=== PATIENT | male | born 1950 | race Caucasian/White ===

== ENCOUNTER → 2024-04-19 09:32 | Outpatient (REF) | payer MEDICARE, OTHER, SELFPAY ==
[2024-04-19 10:17] LABS: % Eosinophils 4.2 % (0-6); % Immature Granulocytes 0.2 % (0-0.5); % Lymphocytes 21.7 % (20.5-51.1); % Monocytes 8.3 % (1.7-9.3); % Neutrophils 64.6 % (42.2-75.2); Absolute Basophils 0.1 10^3/uL (0-0.2); Absolute Eosinophils 0.2 10^3/uL (0-0.7); Absolute Lymphocytes 1.1 10^3/uL (1.2-3.4); Absolute Monocytes 0.4 10^3/uL (0.1-0.6); Absolute Neutrophils 3.3 10^3/uL (1.4-6.5); Hematocrit 42.3 % (39.0-52.0); Mean Corp Hgb Conc. 35.5 g/dL (33.0-37.0); Mean Corpuscular Hgb 30.5 pg (27.0-31.0); Mean Corpuscular Volume 86.2 fL (80.0-94.0); Mean Platelet Volume 9.6 fL (7.4-10.4); Nucleated Red Blood Cells % 0 % (-); Platelet Count 172 10^3/uL (130-400); Red Blood Cell Count 4.91 10^6/uL (4.70-6.10); Red Cell Dist. Width 12.6 % (11.5-14.5); White Blood Cell Count 5.1 10^3/uL (4.8-10.8)
[2024-04-19 11:36] LABS: Blood Urea Nitrogen 13 mg/dl (9-20); Carbon Dioxide 36 mmol/L (22-30); Chloride 103 mmol/L (98-107); Glucose 148 mg/dl (70-99); Potassium 3.4 mmol/L (3.5-5.1); Sodium 141 mmol/L (135-145); eGFR > 60.00
== END ==
LOC: SDSPAT 09:32
PROVIDERS: ATTENDING PHYSICIAN Specialist; FAMILY PHYSICIAN Internal Medicine; OTHER PHYSICIAN Internal Medicine
DX: Z01.818 Encounter for other preprocedural examination (principal)
CPT/HCPCS: 36415; 80048; 85025; 93005

== ENCOUNTER 2024-04-29 06:21 | Day surgery (SDC) | payer MEDICARE, OTHER, SELFPAY ==
[2024-04-19 10:12] VITALS: BMI 35.1
--- NOTE | 2024-04-25 10:36 | PTCARENOTE ---
Patients 04/19 potassium 3.4- Irais @ Dr. Roberts office notified
--- NOTE | 2024-04-25 12:19 | PTCARENOTE ---
Jean Carlos K+, Irais at office notified.
--- NOTE | 2024-04-25 16:09 | PTCARENOTE ---
Abn K+. Dr Valentin notified, no actions requested.
[2024-04-29] VITALS (9 sets, daily range): BP systolic 134–164; BP diastolic 75–97; BMI 35.1
[2024-04-29 08:56] LABS: Glucose - Point of Care 150 mg/dl (70-99)
[2024-04-29] MEDS: NORMOSOL-R 1000 IV (08:56)
[2024-04-29] MEDS: TYLENOL 1000 MG PO (08:56)
[2024-04-29] MEDS: CELEBREX 200 MG PO (08:56)
[2024-04-29 11:23] LABS: Glucose - Point of Care 137 mg/dl (70-99)
== END 2024-04-29 14:01 | disposition home or self-care (01) ==
LOC: SDS 06:21
PROVIDERS: ATTENDING PHYSICIAN Specialist; FAMILY PHYSICIAN Internal Medicine
DX: M65.261 Calcific tendinitis, right lower leg (principal); M17.11 Unilateral primary osteoarthritis, right knee
CPT/HCPCS: 27306; 82962

== ENCOUNTER → 2024-06-24 06:15 | Day surgery (SDC) | payer MEDICARE, OTHER, SELFPAY ==
[2024-06-24 07:52] LABS: Glucose - Point of Care 114 mg/dl (70-99)
== END ==
LOC: GI 06:15
PROVIDERS: ATTENDING PHYSICIAN Internal Medicine Gastroenterology
DX: Z12.11 Encounter for screening for malignant neoplasm of colon (principal); K64.8 Other hemorrhoids; R13.10 Dysphagia, unspecified; K44.9 Diaphragmatic hernia without obstruction or gangrene; R12 Heartburn; Z86.0109 Personal history of other colon polyps
CPT/HCPCS: 43235; G0105; 82962

== ENCOUNTER → 2024-07-12 19:43 | Outpatient (REF) | payer MEDICARE, OTHER, SELFPAY | LOC: MRI 19:43 | PROVIDERS: ATTENDING PHYSICIAN Specialist; FAMILY PHYSICIAN Internal Medicine | DX: M25.562 Pain in left knee (principal); M25.561 Pain in right knee | CPT/HCPCS: 73721 ==